=== PATIENT | female | born 1985 | race Caucasian/White ===

== ENCOUNTER 2016-12-13 20:29 | Day surgery (SDC) | payer BC ==
[~2016-12-13] VITALS: Ht 160 cm; Wt 67.9 kg
[~2016-12-13 20:29] MED LIST: NOHOMEMEDS
[2016-12-13 23:14] LABS: ADD MIUA? YES; BILIRUBIN NEGATIVE; BLOOD LARGE; GLUCOSE (STRIP) NEGATIVE; KETONES NEGATIVE; LEUKOCYTES TRACE; NITRITE NEGATIVE; PROTEIN (STRIP) 100; SPECIFIC GRAVITY 1.005 (1.000-1.030); UROBILINOGEN 0.2 MG/DL (0.2-1.0)
[2016-12-13 23:15] LABS: COLOR RED ((YELLOW))
[2016-12-13 23:22] LABS: HEMATOCRIT 34.2 % (36.0-46.0); MCH 28.1 PG (29.0-34.0); MCHC 34.2 G/DL (30.0-36.0); MEAN PLAT.VOLUME 9.5 uM^3 (9.5-12.4); PLATELET COUNT 180 K/uL (156-360); RBC DIS.WIDTH-CV 11.6 % (11.8-14.6); RBC DIS.WIDTH-SD 34.6 % (39-53); RED BLOOD COUNT 4.17 M/uL (3.80-5.20); WHITE BLOOD COUNT 13.4 K/uL (4.1-10.2)
[2016-12-13 23:23] LABS: BACTERIA RARE /HPF; EPITHELIAL CELLS RARE /HPF; MUCUS NONE SEEN /LPF; RED BLOOD CELLS TNTC /HPF (0-5); UCUL ADDED? YES
[2016-12-14] MEDS ORDERED: HYDROCODON-ACE1 EAC7 PO (02:34)
[2016-12-14] MEDS ORDERED: IBUPROFEN800 MG PO (02:34)
[2016-12-14 04:20] VITALS: BP 111/69
== END 2016-12-14 06:30 | disposition home or self-care (01) ==
LOC: EME 20:29 → ENRESERV 12-14 01:52 → EME 12-14 02:05 → SDC 12-14 02:06 → ENRESERV 12-14 02:56 → 2EASTP 12-14 04:09
PROVIDERS: Emergency Medicine
PROC: 10D17ZZ Extraction of Products of Conception, Retained, Via Natural or Artificial Opening (ICD-10-PCS; principal; 2016-12-14)
DX: O03.1 Delayed or excessive hemorrhage following incomplete spontaneous abortion (principal); Z3A.01 Less than 8 weeks gestation of pregnancy
CPT/HCPCS: 76801; 81003; 84702; 85027; 86900; 86901; 87086; 88305; 99281; 99285; G0378; J0330; J1100; J2175; J2405; J3010; J7030; J7050

== ENCOUNTER 2017-10-08 06:16 | Outpatient (CLI) | payer BC ==
[~2017-10-08] VITALS: Ht 160 cm; Wt 76.2 kg
[~2017-10-08 06:16] MED LIST changes: +HYDROCODON-ACE1 EAC7 PO; +IBUPROFEN800 MG PO
[2017-10-08 06:28] VITALS: BP 113/80
[2017-10-08 08:38] VITALS: BP 127/81
[2017-10-08 09:36] VITALS: BP 129/83
== END 2017-10-08 10:40 | disposition home or self-care (01) ==
LOC: LDRP-OP 06:16 → 2WEST 06:17
DX: O47.1 False labor at or after 37 completed weeks of gestation (principal); Z3A.39 39 weeks gestation of pregnancy
CPT/HCPCS: 59025; G0378

== ENCOUNTER 2017-10-08 19:05 | Outpatient (CLI) | payer BC ==
[2017-10-08 20:00] VITALS: BP 125/84
== END 2017-10-08 22:55 | disposition home or self-care (01) ==
LOC: LDRP-OP 19:05 → 2WEST 19:07 → LDRP-OP 11-10 11:11
DX: O47.1 False labor at or after 37 completed weeks of gestation (principal); Z3A.39 39 weeks gestation of pregnancy
CPT/HCPCS: 59025; G0378

== ENCOUNTER 2017-10-11 00:48 | Inpatient (IN) | payer BC ==
[2017-10-11] VITALS (28 sets, daily range): BP systolic 104–150; BP diastolic 56–81
[~2017-10-11] VITALS: Ht 160 cm; Wt 81.1 kg
[2017-10-11] MEDS ORDERED: PRENATAL TABLE1 EAC3 PO (01:51)
[2017-10-11 02:19] LABS: BASOPHIL (%) 0.5 % (0-1); BASOPHIL COUNT 0.1 K/uL (0-0.1); EOSINOPHIL (%) 0.5 % (0-5); EOSINOPHIL COUNT 0.1 K/uL (0-0.3); HEMATOCRIT 36.3 % (36.0-46.0); HEMOGLOBIN 11.7 G/DL (11.9-15.5); IMMATURE GRANULOCYTE (%) 0.7 % (0.0-0.7); LYMPHOCYTE (%) 22.4 % (15-42); MCH 25.7 PG (29.0-34.0); MCHC 32.2 G/DL (30.0-36.0); MCV 79.6 FL (83-99); MONOCYTE (%) 6.4 % (3-12); MONOCYTE COUNT 0.6 K/uL (0-0.8); NEUTROPHIL (%) 69.5 % (45-76); NEUTROPHIL COUNT 6.3 K/uL (1.8-6.4); PLATELET COUNT 162 K/uL (156-360); RBC DIS.WIDTH-CV 16.7 % (11.8-14.6); RED BLOOD COUNT 4.56 M/uL (3.80-5.20); WHITE BLOOD COUNT 9.1 K/uL (4.1-10.2)
[2017-10-11 02:39] LABS: AMPHETAMINE NEGATIVE (500 ng/mL); BARBITURATES NEGATIVE (200 ng/mL); BENZODIAZEPINES NEGATIVE (150 ng/mL); BUPRENORPHINE NEGATIVE (10 ng/mL); COCAINE NEGATIVE (150 ng/mL); METHADONE NEGATIVE (200 ng/mL); METHAMPHETAMINE NEGATIVE (500 ng/mL); OPIATES (MORPHINE) NEGATIVE (100 ng/mL); OXYCODONE NEGATIVE (100 ng/mL); PHENCYCLIDINE NEGATIVE (25 ng/mL); PROPOXYPHENE NEGATIVE (300 ng/mL); THC CANNABINOIDS NEGATIVE (50 ng/mL); TRICYCLIC ANTIDEPRESSANTS NEGATIVE (300 ng/mL)
[2017-10-11] MEDS ORDERED: MOTRIN800 MG PO (14:12)
[2017-10-11] MEDS ORDERED: PERCOCET 5/31 TABLET PO (14:12)
[2017-10-11 14:30] LABS: BASOPHIL (%) 0.5 % (0-1); BASOPHIL COUNT 0.1 K/uL (0-0.1); EOSINOPHIL (%) 0.3 % (0-5); HEMATOCRIT 32.9 % (36.0-46.0); HEMOGLOBIN 10.8 G/DL (11.9-15.5); IMMATURE GRANULOCYTE (%) 0.7 % (0.0-0.7); LYMPHOCYTE (%) 18.7 % (15-42); LYMPHOCYTE COUNT 2.1 K/uL (1.0-2.8); MCH 26.1 PG (29.0-34.0); MCHC 32.8 G/DL (30.0-36.0); MCV 79.5 FL (83-99); MONOCYTE (%) 8.4 % (3-12); MONOCYTE COUNT 0.9 K/uL (0-0.8); NEUTROPHIL (%) 71.4 % (45-76); NEUTROPHIL COUNT 7.9 K/uL (1.8-6.4); PLATELET COUNT 135 K/uL (156-360); RBC DIS.WIDTH-CV 16.9 % (11.8-14.6); RBC DIS.WIDTH-SD 47.4 % (39-53); RED BLOOD COUNT 4.14 M/uL (3.80-5.20)
[2017-10-12 01:16] VITALS: BP 126/72
[2017-10-12 03:12] VITALS: BP 139/89
[2017-10-12 05:23] VITALS: BP 113/74
[2017-10-12 07:15] LABS: BASOPHIL (%) 0.3 % (0-1); EOSINOPHIL (%) 0.5 % (0-5); EOSINOPHIL COUNT 0.1 K/uL (0-0.3); HEMATOCRIT 27.6 % (36.0-46.0); IMMATURE GRANULOCYTE (%) 0.6 % (0.0-0.7); MCH 25.3 PG (29.0-34.0); MCHC 31.5 G/DL (30.0-36.0); MCV 80.2 FL (83-99); MONOCYTE (%) 7.9 % (3-12); MONOCYTE COUNT 0.9 K/uL (0-0.8); NEUTROPHIL (%) 72.7 % (45-76); NEUTROPHIL COUNT 7.9 K/uL (1.8-6.4); PLATELET COUNT 119 K/uL (156-360); RBC DIS.WIDTH-CV 16.7 % (11.8-14.6); RBC DIS.WIDTH-SD 47.8 % (39-53); RED BLOOD COUNT 3.44 M/uL (3.80-5.20); WHITE BLOOD COUNT 10.9 K/uL (4.1-10.2)
[2017-10-12 07:17] LABS: HEMOGLOBIN 8.7 G/DL (11.9-15.5)
[2017-10-13 07:14] VITALS: BP 127/71
[2017-10-13 11:37] VITALS: BP 120/79
[2017-10-14 07:16] VITALS: BP 132/80
[2017-10-14] MEDS ORDERED: DOCUSATE SODIU100 MG PO (08:11)
[2017-10-14] MEDS ORDERED: FERROUS SULFAT325 MG PO (08:21)
[2017-10-14] MEDS ORDERED: ANALPRAM HC 2.530 GM PR (08:22)
== END 2017-10-14 12:40 | disposition home or self-care (01) | DRG 766 ==
LOC: LDRP-OP 00:48 → 2WEST 00:49 → LDRP-OP 11-10 23:07
PROVIDERS: Nurse Practitioner; Obstetrics & Gynecology
PROC: 3E0R3BZ Introduction of Anesthetic Agent into Spinal Canal, Percutaneous Approach (ICD-10-PCS; principal; 2017-10-11)
PROC: 10D00Z1 Extraction of Products of Conception, Low, Open Approach (ICD-10-PCS; principal; 2017-10-11)
PROC: 00HU33Z Insertion of Infusion Device into Spinal Canal, Percutaneous Approach (ICD-10-PCS; principal; 2017-10-11)
DX: O62.1 Secondary uterine inertia (principal); O64.0XX0 Obstructed labor due to incomplete rotation of fetal head, not applicable or unspecified; O76 Abnormality in fetal heart rate and rhythm complicating labor and delivery; O99.02 Anemia complicating childbirth; D50.9 Iron deficiency anemia, unspecified; O99.214 Obesity complicating childbirth; E66.9 Obesity, unspecified; O99.824 Streptococcus B carrier state complicating childbirth; O77.0 Labor and delivery complicated by meconium in amniotic fluid; Z3A.40 40 weeks gestation of pregnancy; Z37.0 Single live birth
CPT/HCPCS: 59025; 85025; 85025 91; 86850; 86900; 86901; C1755; G0378; J0690; J1170; J2274; J2405; J2540; J2590; J2795; J3010; J7120; S0020